=== PATIENT | female | born 1990 | race Caucasian/White ===

== ENCOUNTER 2023-10-13 06:47 | Emergency (ER) | payer SELFPAY ==
[~2023-10-13] VITALS: Ht 167.6 cm; Wt 104.5 kg
[2023-10-13 06:50] VITALS: TEMP 98.1
[2023-10-13] MEDS ORDERED: NORCO 325 MG-51 TAB PO (08:23)
[2023-10-13 08:28] VITALS: BP 134/73; PULSE 52
== END 2023-10-13 08:38 | disposition home or self-care (01) ==
LOC: COL.ER 06:47
DX: S80.01XA Contusion of right knee, initial encounter (principal); S70.01XA Contusion of right hip, initial encounter; W00.0XXA Fall on same level due to ice and snow, initial encounter; Y92.039 Unspecified place in apartment as the place of occurrence of the external cause
CPT/HCPCS: J2270; L1846